=== PATIENT | male | born 1935 | race Caucasian/White ===

== ENCOUNTER 2016-03-08 12:49 | Day surgery (SDC) | payer MEDICARE, OTHER ==
--- NOTE | ~2016-03-08 | CN ---
Consultation Report [place] [id number] [facility] [place]. [address] NAME: NARCISO BRITT JR : 37 STATUS : ADM IN [facility]#: [id number] AGE: 80 ADM/REG DATE : 03/08/16 MR#: [id number] REPORT SERV DATE: 03/09/16 DICTATED BY: MANJEETBEVERLEYESTEBAN MARAVILLA DATE: 03/09/16 REPORT STATUS : Draft TRANSCRIBED BY: MODL DATE: 03/09/16 CONSULTATION DATE OF CONSULTATION: 03/08/2016 REASON FOR CONSULTATION: Consulted for hypertension. PCP: The patient relates that he previously has no primary care doctor, that he goes to a clinic called [facility] in [place]. PULMONARY: Gemma Del Toro M.D. SURGEON: Dominik Rob M.D. previously. PRESENT SURGEON: Donavan Kessler M.D. HISTORY OF PRESENT ILLNESS: The patient has had previous abdominal surgeries as well as hernia repair, and he presents to Dr. Donavan Kessler with abdominal pain which up on CT of the abdomen and pelvis and KUB showed a partial small bowel obstruction. We are consulted for hypertension. He has a history of hypertension, COPD, asthma, bladder cancer, and skin cancer in the past and he has a bowel obstruction with an NG tube present so he is unable to take p.o. medications at this time so we are consulted to control his hypertension while in the hospital as being n.p.o. The patient's history was obtained through careful interview with the patient along with review of [facility] and [facility] as well as client care consultant notes and old medical records. PAST MEDICAL HISTORY: 1. High cholesterol. 2. Hypertension. 3. COPD. 4. Gout. 5. Asthma. 6. Bladder cancer. 7. Skin cancer. 8. Obesity. HOME MEDICATIONS: 1. Albuterol 3 mL inhalation solution, 1 nebulizer inhalation 4 times a day. 2. Zyloprim 300 mg tab 0.75 mg tab p.o. daily. 3. Aspirin 81 mg tab p.o. at bedtime. 4. Pulmicort Respules 0.5 mg inhalation twice a day. 5. Vitamin D3 2000 units p.o. at bedtime. 6. Vitamin B12 1500 mcg p.o. at bedtime. Consultation Report [place] [address] [facility] [place]. [address] NAME: NARCISO BRITT JR : 37 STATUS : ADM IN PAT#: [id number] AGE: 80 ADM/REG DATE : 03/08/16 MR#: [id number] REPORT SERV DATE: 03/09/16 DICTATED BY: BEVERLEY BURROUGHS DATE: 03/09/16 REPORT STATUS : Draft TRANSCRIBED BY: CLIFTON DATE: 03/09/16 7. Singulair 10 mg p.o. at bedtime. 8. Ditropan XL 10 mg p.o. at bedtime. 9. Hytrin 5 mg p.o. at bedtime. 10.Pare-eqp-tugeynb motion sickness tablets 1 tab p.o. daily p.r.n. nausea and vomiting. ALLERGIES: NO KNOWN ALLERGIES. SOCIAL HISTORY: The patient is for 25 years. He has one son aged 52. Presently not a smoker, he quit he states 25 years ago or more. No illicit drug use. Alcohol use, occasionally he averages 1 drink per week. Lives in a single-level home. No problem with mobility. FAMILY HISTORY: 1. Father was at age 9696 years old of old age. 2. Mother is from cancer of the lung at age 94. 3. He has 5 brothers and 2 sisters; two brothers of which are now , two sisters that he has are . SURGICAL HISTORY: 1. In 2015, he had bladder cancer surgery with Dr. Flores in [place]. 2. 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 3. Left inguinal hernia repair. 4. Left femoral thrombectomy. REVIEW OF SYMPTOMS: Negative other than what is included in the HPI. Presently, we are consulted for hypertension. The patient also has a history of COPD for which we will be writing orders to treat his COPD asthma while inpatient. He has no complaints of chest pain. No fever, no shortness of breath. No nausea, vomiting at present time. No diarrhea but he does have an NG tube to the left naris to low intermittent suction for small bowel obstruction. He does complain of the abdominal discomfort. PHYSICAL EXAMINATION: VITAL SIGNS: Blood pressure 156/70, heart rate 74, O2 saturation 95% on 2 L nasal cannula, temperature 98.4. GENERAL: This is a pleasant male, 80 years old. Resting in bed. No acute distress. NEURO: Head is atraumatic, normocephalic. He is alert and oriented x3. His cranial nerves 2-12 are intact. He is pleasant and appropriate. NECK: Supple. Trachea is midline. No JVD. No obvious thyromegaly or lymphadenopathy. EENT: His sclerae are nonicteric. His pupils are equal, reactive to light. His nares are patent. He has a left naris NG tube to low intermittent suction with bile colored drainage up to the wall suction. Mucous membranes are moist. Tongue is midline without deviation. His soft palate rises equally on phonation. CHEST: No tenderness to palpation. Consultation Report [address] [place]. [address] NAME: NARCISO BRITT JR : 37 STATUS : ADM IN [facility]#: [id number] AGE: 80 ADM/REG DATE : 03/08/16 MR#: [id number] REPORT SERV DATE: 03/09/16 DICTATED BY: BEVERLEY BURROUGHS DATE: 03/09/16 REPORT STATUS : Draft TRANSCRIBED BY: CLIFTON DATE: 03/09/16 LUNGS: Coarse cough, nonproductive, has diminished breath sounds at bases. Presently on O2 at 2 L, complaining of throat discomfort and coughing. CV: S1, S2 with no obvious murmurs, rubs, or gallops. He is on defensive monitoring which shows sinus rhythm with occasional PAC and PVC with a rate of 78. ABDOMEN: Distended soft. He does have active bowel sounds. He does complain of slight discomfort in the mid-abdominal area where he has had previous abdominal surgery. EXTREMITIES: No edema. Normal distal pulses. No calf tenderness. He will have SCDs and TEDs placed. SKIN: Warm and dry. No unusual rashes or lesions. Normal color and turgor. Appropriate for age. PSYCH: He is pleasant and cooperative. Appropriate mood and affect. LABORATORY DATA: Sodium 144, potassium 3.8, chloride 105, BUN 12, creatinine 1.08, GFR 75, glucose 138, calcium 9.6, white blood cell 8.5, hemoglobin 15.3, hematocrit 44.7, platelets 131 which was done on 03/08/2016 at 10 o'clock in the morning. CT of the abdomen and pelvis on 03/08/2016 showed a partial small bowel obstruction with edema and inflammation within the adjacent mesentery, also thinning of the rectus muscle with anterior protrusion of bowel with minimal right basilar atelectasis and pleural fluid. Diverticulosis and calcific atherosclerosis. KUB on 03/08/2016 shows NG tube in the fundus with tip in the body of the stomach and small bowel obstruction. ASSESSMENT AND PLAN: 1. Hypertension. We are aware. The patient is normally on Hytrin to control his blood pressure at home at h.s. but he is n.p.o. for small-bowel obstruction and has an NG tube placed to low intermittent suction. We will initiate hydralazine p.r.n. q.6 h. systolic BP greater than 165. 2. Chronic obstructive pulmonary disease. We are aware. He has a history of asthma as well as COPD. We will continue his home Pulmicort b.i.d. We will also add albuterol nebs p.r.n. q.6 h. for shortness of breath or wheezing. O2 can be titrated to keep his sats 92% or greater. 3. Abdominal pain. We are aware. He did present with a partial small bowel obstruction, being seen by Dr. Donavan Kessler. We will give him morphine 2 mg IV. We will also check CMP, magnesium, CBC, and INR this a.m. The hospitalist group would like to thank you for this consultation. We will continue to follow with you and the patient until he is discharged, and please let us know if we could be of any further assistance. /CLIFTON Beverley Burroughs, Consultation Report [address] [place] 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
--- NOTE | ~2016-03-08 | HP ---
History And Physical [place] [address] [facility] [place]. [address] NAME: NARCISO BRITT JR : 37 STATUS : ADM IN [facility]#: [id number] AGE: 80 ADM/REG DATE : 03/08/16 MR#: [id number] REPORT SERV DATE: 03/09/16 DICTATED BY: DONAVAN PAINTER DATE: 03/09/16 REPORT STATUS : Draft TRANSCRIBED BY: MODL DATE: 03/09/16 DATE OF ADMISSION: 03/08/2016 CHIEF COMPLAINT: Constipation, nausea or vomiting. HISTORY OF PRESENT ILLNESS: The patient is a 80-year-old gentleman, who was in his usual state of health when on Saturday, he started developing some lower abdominal pain. This did progressively worsen and he has not had a bowel movement since Saturday evening which is unusual for him. He has developed some associated nausea and vomiting and has been unable to keep anything down. He had extensive surgery done by Dominik Rob, he states 12 years ago, but in reading, this was done in 2005. Apparently, he had a bowel resection performed, and he states he had a blood clot in his colon. 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 He has never been hospitalized for this before. He has developed a large ventral protrusion consistent with a diastasis and possible chronic hernia that it has been present ever since this surgery and this has not changed in the last few days according to the patient and remains nontender and soft. He denies any fever or chills. No other precipitating or alleviating factors. He just found out about a nodule on his lung and went to [place] and had a PET scan performed and he scheduled this followup with his doctors in [place] on Saturday to discuss results of this PET-CT which was ordered to evaluate this lung nodule and he is uncertain as to which lung is involved. He does report a chronic cough that is nonproductive. PAST MEDICAL HISTORY: Significant for hypertension; bladder cancer, this was treated with the cysto and ablation by a doctor in [place]; and he has had a history of COPD. PREVIOUS SURGERIES: Include inguinal hernia repairs and ex lap and bowel resection done by Dominik Rob, and he has had back surgery as well. MEDICATIONS: Taken at home include: Proventil inhalers, allopurinol, aspirin, Pulmicort, vitamins, Ditropan, Hytrin and Motrin. ALLERGIES: NO KNOWN DRUG ALLERGIES. SOCIAL HISTORY: He quit smoking a number of years ago. He continues to drink moderately. He is retired. FAMILY HISTORY: Noncontributory. REVIEW OF SYSTEMS: A comprehensive 12-point review of systems obtained and completely negative other than what is mentioned history of present illness. PHYSICAL EXAMINATION: VITAL SIGNS: Temperature is 98, pulse 72, respirations 16, blood pressure 140/77. History And Physical [address] [place]. [address] NAME: NARCISO BRITT JR : 37 STATUS : ADM IN [facility]#: [id number] AGE: 80 ADM/REG DATE : 03/08/16 MR#: [id number] REPORT SERV DATE: 03/09/16 DICTATED BY: DONAVAN PAINTER DATE: 03/09/16 REPORT STATUS : Draft TRANSCRIBED BY: CLIFTON DATE: 03/09/16 GENERAL: He is a well-developed gentleman in no acute cardiopulmonary distress. HEENT: Pupils are equal, round, and reactive to light. Extraocular movements are intact. Conjunctivae are nonicteric. NECK: Supple. He has no jugular venous distention. No carotid bruits. ABDOMEN: Soft. He has a large diastasis and questionable hernia associated with this diastasis, but it is soft and completely nontender. EXTREMITIES: No significant edema. LABORATORY DATA: White blood cell count is 8.5, hematocrit 44, and platelet count 131. Sodium 144, potassium 3.8, chloride 105, CO2 30, BUN 12, creatinine 1.08, total bilirubin 1.8, alkaline phosphatase 85, ALT 28, AST 16, lipase 74. CT scan of abdomen and pelvis obtained without contrast. To my review, there is really no clear transition point. There is stool within the colon; however, his proximal small bowel does appear to be dilated to suggest a partial obstruction. Lactic acid is 1. ASSESSMENT: A 80-year-old gentleman, who presents with clinical signs suggestive of partial small bowel obstruction, also history of bladder cancer, and hypertension and newly discovered lung nodule that is currently being worked up in [place]. PLAN: Nasogastric tube decompression. We will obtain a Gastrografin small bowel follow- through on him and continue conservative measures. We will ask hospitalists to manage his hypertension. If he fails to respond to conservative measures, he could require exploration. KELLY/CLIFTON Donavan Painter M.D. / [id number] CC: Donavan Painter M.D.
--- NOTE | ~2016-03-08 | DS ---
Discharge Summary [facility] [address] [place]. [address] NAME: NARCISO BRITT JR : 37 STATUS : DIS IN PAT#: [id number] AGE: 80 ADM/REG DATE : 03/08/16 MR#: [id number] REPORT SERV DATE: 03/20/16 DICTATED BY: DONAVAN PAINTER DATE: 03/19/16 REPORT STATUS : Draft TRANSCRIBED BY: CLIFTON DATE: 03/19/16 Data Collection from hospitalization DISCHARGE DIAGNOSES: 1. Partial small bowel obstruction. 2. Hypertension. 3. Bladder cancer. 4. Chronic obstructive pulmonary disease. 5. Past history of tobacco use. CONSULTATIONS: Beverley Forbes NP. PROCEDURES PERFORMED: CT scan of the abdomen and pelvis without contrast on 03/08/2016. MEDICATIONS: Zyloprim as instructed, aspirin 81 mg at bedtime, vitamin B12 1500 mcg at bedtime, vitamin D3 2000 units at bedtime, Singulair 10 mg at bedtime, Ditropan XL 10 mg at bedtime, Hytrin 5 mg at bedtime, Pulmicort Respules 0.5 mg via inhaler twice a day, and over the-counter motion sickness tablets one tablet daily as needed. CONDITION AT DISCHARGE: Stable. DISPOSITION: The patient was discharged home with diet and activities as instructed. He would follow up with Dr. Pacheco two weeks following discharge. HOSPITAL COURSE: This is a 80-year-old man who had been in his usual state of health when on Saturday prior to admission, he began to develop some lower abdominal pain. This did progressively worsen and he had not had a bowel movement since Saturday evening, which was unusual for him. He developed some associated nausea and vomiting and was unable to keep anything down. He had extensive surgery performed by Dr. Dominik Rob in 2005. Apparently, he had a bowel resection performed. He said that he had a blood clot in his colon. 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 He had developed a large ventral protrusion consistent with a diastasis and possible chronic hernia that had been present ever since the surgery, it had not changed in the last few days according to the patient, and remained nontender and soft. He just found about a nodule on his lungs and went to [place] and had a PET scan performed and he is scheduled to follow up with his doctors in [place] on Saturday to discuss the results of the PET CT, which had been ordered to evaluate this lung nodule and he was uncertain which lung was involved. He does have a chronic cough that was nonproductive. He was admitted to the hospital at this time for further evaluation and treatment. Upon admission, a CT scan of the abdomen and pelvis without contrast revealed no clear transition point. There was stool within the colon. However, his proximal small bowel did appear to be dilated suggesting partial obstruction. Lactic acid was 1. Nasogastric tube decompression was going to begin. We were going to obtain a Gastrografin small bowel followthrough and continue conservative measures. If he failed to respond to conservative measures, he may require exploration. He was seen in consultation by Beverley Forbes regarding hypertension. The patient is normally on Hytrin to control his blood pressure at home at bedtime, that he was being held n.p.o. for small bowel obstruction and an NG tube was in Discharge Summary [address] [address] NAME: NARCISO BRITT : 37 STATUS : DIS IN PAT#: [id number] AGE: 80 ADM/REG DATE : 03/08/16 MR#: [id number] REPORT SERV DATE: 03/20/16 DICTATED BY: DONAVAN PAINTER DATE: 03/19/16 REPORT STATUS : Draft TRANSCRIBED BY: CLIFTON DATE: 03/19/16 place to low intermittent suction, hydralazine was going to be initiated as needed for systolic blood pressure greater than 165. He has a history of asthma as well as COPD. His home Pulmicort was continued. We added albuterol nebulizers as needed for shortness of breath or wheezing. O2 could be titrated to keep his saturations 92% or greater. IV morphine was going to be given as needed. Following day, a small bowel followthrough was performed. He still complained of abdominal pain. The patient said he had no history of hypertension and reported that his blood pressure runs low at home. Hydralazine was being given as needed. Denied any shortness of breath at this time. Pulmicort and albuterol were continued. On 03/10/2016, he denied any abdominal pain, nausea or vomiting. Tramadol/hydrocodone was being given as needed for pain. O2 was being weaned as tolerated. Discharge planning was performed. On 03/11/2016, he denied any new complaints. O2 was being weaned. He denied shortness of breath. He said he was feeling better. The partial small bowel obstruction was resolving. We advanced his diet. Discharge instructions were given. Due to his improved and stable condition, he was discharged home with the above- stated instructions. Information collected by: Izabel Bahena I submit the above information as my discharge summary. JOSE/CLIFTON Donavan Painter M.D. / [id number] CC: Donavan Painter M.D.
[2016-03-08 10:23] LABS: BASOPHILS 0.2 %; BASOPHILS ABSOLUTE 0.02 10/3/uL (0.0-0.16); EOSINOPHILS 0.7 %; EOSINOPHILS ABSOLUTE 0.06 10/3/uL (0.0-0.53); ER CBC TAT 0 Hrs 05 Mins; HEMOGLOBIN 15.3 g/dL (13.6-17.8); IMMATURE GRANULOCYTES 0.2 %; IMMATURE GRANULOCYTES ABSOLUTE 0.02 10/3/uL (0.0-0.11); LYMPHOCYTES 12.9 %; MEAN CORPUS HGB CONC 34.2 g/dL (32.0-36.0); MEAN CORPUSCULAR HEMOGLOB 31.5 pg (26.0-34.0); MEAN PLATELET VOLUME 9.7 fL (9.2-13.0); MONOCYTES 4.6 %; MONOCYTES ABSOLUTE 0.39 10/3/uL (0.21-1.20); NEUTROPHILS 81.4 %; NEUTROPHILS ABSOLUTE 6.95 10/3/uL (2.02-8.40); PLATELET COUNT 131 10/3/uL (150-400); RBC DISTRIBUTION WIDTH 13.1 % (12.0-16.0); RED CELL COUNT 4.86 10/6/uL (4.7-6.1); WHITE BLOOD CELLS 8.5 10/3/uL (4.5-10.5)
[2016-03-08 10:25] LABS: HEMATOCRIT 44.7 % (40.0-51.0); MANUAL DIFF NO %
[2016-03-08 10:39] LABS: ALBUMIN 3.5 G/DL (3.5-5.0); CALCIUM, SERUM 9.6 MG/DL (8.5-10.4); CHLORIDE, SERUM 105 MMOL/L (96-112); CO2 (CARBON DIOXIDE) 30 MMOL/L (24-34); CREATININE 1.08 MG/DL (0.70-1.30); GFR AFRICAN AMERICAN 75 ML/MIN (>=60); GFR NON AFRICAN AMERICAN 65 ML/MIN (>=60); GLOBULIN 3.4 G/DL (2.5-4.1); GLUCOSE, SERUM 138 MG/DL (60-99); POTASSIUM, SERUM 3.8 MMOL/L (3.5-5.3); SGOT(AST) 16 U/L (5-40); SGPT(ALT) 20 U/L (5-65); SODIUM, SERUM 144 MMOL/L (135-148); TOTAL PROTEIN 6.9 G/DL (6.0-8.5)
[2016-03-08 10:40] LABS: ALKALINE PHOSPHATASE 85 U/L (45-117); BUN (BLOOD UREA NITROGEN) 12 MG/DL (6-23); TOTAL BILIRUBIN 1.8 MG/DL (0-1.2)
[2016-03-08 10:50] LABS: ASCORBIC ACID (UR NOT ORDER) NEG (NEG); BILIRUBIN, URINE NEGATIVE (NEG); KETONE, URINE 20 MG/DL (NEG); LEUKOCYTE ESTERASE(NOT OR NEG (NEG); NITRITE (URINE) NEG (NEG); WBC (NOT ORDERED) (RFLEX) 4 (0-5)
[2016-03-08 10:51] LABS: ER URINALYSIS TAT 0 Hrs 32 Mins
[2016-03-08] MEDS ORDERED: Z300 PO (15:29)
[2016-03-08] MEDS ORDERED: HYT5 PO (15:29)
[2016-03-08] MEDS ORDERED: SINGULAIR1 PO ×2 (15:30→15:34)
[2016-03-08] MEDS ORDERED: DITROPAN XL10 MG PO (15:34)
[2016-03-08] MEDS ORDERED: CYANO1000T PO (15:34)
[2016-03-08] MEDS ORDERED: HALF81 PO (15:34)
[2016-03-08] MEDS ORDERED: PROVENTSOL INH (15:35)
[2016-03-08] MEDS ORDERED: PULRESP.5 INH (15:35)
[2016-03-08] MEDS ORDERED: VITAMIN D31000 UNIT PO (15:35)
[2016-03-08] MEDS ORDERED: [UNRECOGNIZED DRUG - REMARK] PO (15:36)
[2016-03-09 05:10] LABS: BASOPHILS 0.3 %; BASOPHILS ABSOLUTE 0.02 10/3/uL (0.0-0.16); EOSINOPHILS 0.8 %; EOSINOPHILS ABSOLUTE 0.05 10/3/uL (0.0-0.53); HEMATOCRIT 42.1 % (40.0-51.0); HEMOGLOBIN 14.1 g/dL (13.6-17.8); IMMATURE GRANULOCYTES 0.2 %; IMMATURE GRANULOCYTES ABSOLUTE 0.01 10/3/uL (0.0-0.11); LYMPHOCYTES 13.1 %; LYMPHOCYTES ABSOLUTE 0.87 10/3/uL (0.67-4.30); MEAN CORPUS HGB CONC 33.5 g/dL (32.0-36.0); MEAN CORPUSCULAR HEMOGLOB 31.9 pg (26.0-34.0); MEAN PLATELET VOLUME 10.3 fL (9.2-13.0); MONOCYTES 5.1 %; MONOCYTES ABSOLUTE 0.34 10/3/uL (0.21-1.20); NEUTROPHILS 80.5 %; NEUTROPHILS ABSOLUTE 5.35 10/3/uL (2.02-8.40); PLATELET COUNT 113 10/3/uL (150-400); RBC DISTRIBUTION WIDTH 13.1 % (12.0-16.0); RED CELL COUNT 4.42 10/6/uL (4.7-6.1); WHITE BLOOD CELLS 6.6 10/3/uL (4.5-10.5)
[2016-03-09 05:13] LABS: INTERNATIONAL NORMAL RATI 1.2 UNITS (-); PROTIME (NOT ORD) 15.2 SEC (12.0-14.5)
[2016-03-09 05:27] LABS: CHLORIDE, SERUM 107 MMOL/L (96-112); CO2 (CARBON DIOXIDE) 29 MMOL/L (24-34); CREATININE 0.99 MG/DL (0.70-1.30); GFR AFRICAN AMERICAN 84 ML/MIN (>=60); GFR NON AFRICAN AMERICAN 72 ML/MIN (>=60); GLUCOSE, SERUM 125 MG/DL (60-99); POTASSIUM, SERUM 3.6 MMOL/L (3.5-5.3); SGOT(AST) 11 U/L (5-40); SGPT(ALT) 15 U/L (5-65); SODIUM, SERUM 146 MMOL/L (135-148); TOTAL BILIRUBIN 1.6 MG/DL (0-1.2)
[2016-03-09 05:37] LABS: ALKALINE PHOSPHATASE 69 U/L (45-117); BUN (BLOOD UREA NITROGEN) 16 MG/DL (6-23); CALCIUM, SERUM 8.6 MG/DL (8.5-10.4); MEAN CORPUSCULAR VOLUME 95.2 fL (80-100)
[2016-03-09 05:38] LABS: MANUAL DIFF NO %
== END 2016-03-11 16:06 | disposition home or self-care (01) ==
LOC: ER 12:49 → SDC 18:37
PROVIDERS: Hospitalist; Nurse Practitioner; Surgery
DX: R11.2 Nausea with vomiting, unspecified (principal); J44.9 Chronic obstructive pulmonary disease, unspecified; I10 Essential (primary) hypertension; Z79.82 Long term (current) use of aspirin; Z79.899 Other long term (current) drug therapy; Z98.890 Other specified postprocedural states; K56.69 Other intestinal obstruction
CPT/HCPCS: 74000; 74176; 74250; 80053; 81001; 83605; 83690; 83735; 85025; 85610; 94640; 96374; 99285; A9270-GY; C9113; J0360; J1980; J2405; J2550